=== PATIENT | female | born 1980 | race Caucasian/White ===

== ENCOUNTER → 2020-11-29 12:21 | Outpatient (BNVA) | payer OTHER, SELFPAY | PROVIDERS: Visit Provider Registered Nurse Neonatal Intensive Care | DX: N15.9 Renal tubulo-interstitial disease, unspecified (principal) | CPT/HCPCS: 81000 ==

== ENCOUNTER → 2021-05-05 11:20 | Outpatient (BNVA) | payer SELFPAY | PROVIDERS: PCP Family Medicine Adult Medicine; Visit Provider Family Medicine Adult Medicine | DX: N23 Unspecified renal colic (principal); G35 Multiple sclerosis; R63.5 Abnormal weight gain | CPT/HCPCS: 80053; 81000; 83036; 84443; 85025 ==